=== PATIENT | female | born 1980 | race Caucasian/White ===

== ENCOUNTER 2020-11-12 09:32 | Inpatient (IN) ==
[2020-11-12] MEDS ORDERED: CeFAZolin 2,000 MG/120 ML BAG IVPB ONE (09:46)
[2020-11-12] MEDS ORDERED: Ringers Solution, Lactated 1,000 ML IVC ONE (09:46)
[2020-11-12] MEDS ORDERED: Oxytocin 20 units/ LR 1000 mL 20 UNIT/1,000 ML BAG IVC ONE ×2 (09:46→14:42)
[2020-11-12] MEDS ORDERED: Metoclopramide 10 MG/2 ML VIAL IVP ONE (09:46)
[2020-11-12] MEDS ORDERED: Famotidine 20 MG/2 ML VIAL IVP ONE (09:46)
[2020-11-12] MEDS ORDERED: Naloxone 0.4 MG/ML INJ IVP PRN ×2 (09:50→17:16)
[2020-11-12] MEDS ORDERED: *HR* Morphine Sulfate/PF 10 MG/10 ML AMPUL ONE (09:54)
[2020-11-12] MEDS ORDERED: *HR* FentaNYL (PF) 250 MCG/5 ML VIAL ONE (09:54)
[2020-11-12 10:42] LABS: Hematocrit 40.4 % (35.3-44.9); Hemoglobin 13.1 g/dL (11.5-15.4); Immature Granulocytes % 0.6 % (0-4); Lymphocytes % 18.8 %; Mean Corpuscular HGB Conc 32.4 g/dL (31.6-35.5); Mean Corpuscular Hemoglobin 31.3 pg (28.0-33.3); Mean Corpuscular Volume 96.4 fL (83.0-100.0); Mean Platelet Volume 10.3 fL (9.4-12.4); Platelet Count 310 K/mcL (140-400); Red Blood Count 4.19 M/mcL (3.82-4.97); Red Cell Distribution Width 12.4 % (11.5-14.5); Segmented Neutrophils % 72.1 %; White Blood Count 10.8 K/mcL (4.3-11.1)
[2020-11-12 10:43] LABS: Basophils % 0.3 %; Eosinophils # 0.2 K/mcL (0.0-0.6); Eosinophils % 2.1 %; Monocytes # 0.7 K/mcL (0.0-1.3); Monocytes % 6.1 %; Neutrophils # 7.8 K/mcL (1.6-8.9)
[2020-11-12 10:51] LABS: Amphetamine Screen,Urine Negative ng/mL (Cutoff=1000); Barbiturate Screen,Urine Negative ng/mL (Cutoff=200); Benzodiazepines Screen,Urine Negative ng/mL (Cutoff=200); Cannabinoid Screen,Urine Negative ng/mL (Cutoff = 50); Cocaine Screen,Urine Negative ng/mL (Cutoff= 300); Opiate Screen,Urine Negative ng/mL (Cutoff=300); Phencyclidine Screen,Urine Negative ng/mL (Cutoff=25)
[2020-11-12] MEDS ORDERED: *HR* HYDROmorphone PF 0.5 MG/0.5 ML SYRINGE IVP PRN (10:57)
[2020-11-12] MEDS ORDERED: Ondansetron 4 MG/2 ML VIAL IVP PRN ×2 (10:57→17:16)
[2020-11-12] MEDS ORDERED: *HR* Propofol 200 MG/20 ML VIAL IVP ONE (11:01)
[2020-11-12] MEDS ORDERED: Ondansetron 4 MG/2 ML VIAL ONE (11:01)
[2020-11-12] MEDS ORDERED: Lidocaine -MPF 2% 5 ML VIAL ONE (11:01)
[2020-11-12] MEDS ORDERED: EPHEDrine 50 MG/ML VIAL ONE (11:01)
[2020-11-12 11:17] LABS: Influenza A PCR Negative (Negative); Influenza B PCR Negative (Negative); Resp. Syncytial Virus PCR Negative (Negative)
[2020-11-12 11:18] LABS: SARS-CoV-2 by PCR (In House) Negative (Negative)
[2020-11-12] MEDS ORDERED: Ringers Solution, Lactated 1,000 ML ONE (11:55)
[2020-11-12] MEDS ORDERED: *HR* FentaNYL (PF) 100 MCG/2 ML VIAL ONE (13:42)
[2020-11-12] MEDS ORDERED: Oxytocin 20 units/ LR 1000 mL 20 UNIT/1,000 ML BAG IVC SCH ×2 (17:16)
[2020-11-12] MEDS ORDERED: Ringers Solution, Lactated 1,000 ML IVC SCH (17:16)
[2020-11-12] MEDS ORDERED: Simethicone 80 MG TAB.CHEW PO PRN (17:16)
[2020-11-12] MEDS ORDERED: Rho Immune Globulin 1,500 UNIT SYRINGE IM ONE (17:16)
[2020-11-12] MEDS ORDERED: Metoclopramide 10 MG/2 ML VIAL IVP PRN (17:16)
[2020-11-12] MEDS ORDERED: *HR* HYDROMORPHONE 2 MG/ML VIAL ONE (17:37)
[2020-11-12] MEDS: *HR* OxyCODONE/APAP 5/325 TABLET PO PRN (18:22)
[2020-11-12] MEDS: Ibuprofen 600 MG TABLET PO SCH (18:22)
[2020-11-12] MEDS: Acetaminophen 325 MG TABLET PO SCH (18:22)
[2020-11-12] MEDS: *HR* Enoxaparin 60 MG/0.6 ML SYRINGE SQ SCH (20:06)
[2020-11-13] MEDS: Ibuprofen 600 MG TABLET PO SCH ×5 (00:16→23:37)
[2020-11-13] MEDS: Acetaminophen 325 MG TABLET PO SCH ×5 (00:16→23:37)
[2020-11-13 05:58] LABS: Basophils % 0.2 %; Eosinophils # 0.1 K/mcL (0.0-0.6); Eosinophils % 0.6 %; Hematocrit 30.2 % (35.3-44.9); Immature Granulocytes % 0.5 % (0-4); Lymphocytes # 2.1 K/mcL (0.6-4.6); Lymphocytes % 12.7 %; Mean Corpuscular HGB Conc 32.5 g/dL (31.6-35.5); Mean Corpuscular Hemoglobin 31.6 pg (28.0-33.3); Mean Corpuscular Volume 97.4 fL (83.0-100.0); Mean Platelet Volume 10.6 fL (9.4-12.4); Neutrophils # 13.3 K/mcL (1.6-8.9); Platelet Count 264 K/mcL (140-400); Red Cell Distribution Width 12.5 % (11.5-14.5)
[2020-11-13 05:59] LABS: Hemoglobin 9.8 g/dL (11.5-15.4); White Blood Count 16.6 K/mcL (4.3-11.1)
[2020-11-13] MEDS: Prenatal Vit/FA 1 EACH TABLET PO SCH (08:19)
[2020-11-13] MEDS: *HR* Enoxaparin 60 MG/0.6 ML SYRINGE SQ SCH ×2 (08:20→23:37)
[2020-11-13] MEDS: *HR* OxyCODONE/APAP 5/325 TABLET PO PRN ×2 (11:38→18:33)
[2020-11-14 00:30] VITALS: BP 116/65; PULSE 98; TEMP 98.1; O2SAT 100
[2020-11-14] MEDS: Acetaminophen 325 MG TABLET PO SCH ×2 (06:03→11:17)
[2020-11-14] MEDS: Ibuprofen 600 MG TABLET PO SCH ×2 (06:03→11:17)
[2020-11-14] MEDS: *HR* Enoxaparin 60 MG/0.6 ML SYRINGE SQ SCH (11:18)
[2020-11-14] MEDS: Prenatal Vit/FA 1 EACH TABLET PO SCH (11:18)
[2020-11-14] MEDS ORDERED: Lanolin 7 G OINT...G. TP PRN (12:56)
== END 2020-11-14 12:30 | disposition home or self-care (01) | DRG 540 ==
LOC: SAMDAY 09:32 → 1NENULAB 09:34 → 1NENUOBS 17:16
PROVIDERS: ADMIT Obstetrics & Gynecology; ATTEND Obstetrics & Gynecology